=== PATIENT | female | born 2000 | race Caucasian/White ===

== ENCOUNTER 2023-05-18 11:41 | Observation (INO) | payer MEDICAID ==
[~2023-05-18] VITALS: Ht 165.1 cm; Wt 83.5 kg
== END 2023-05-18 14:45 | disposition home or self-care (01) ==
LOC: 8 EST LDRP 11:41
PROVIDERS: ADMIT Obstetrics & Gynecology; ATTEND Obstetrics & Gynecology
DX: O36.8130 Decreased fetal movements, third trimester, not applicable or unspecified (principal); Z3A.40 40 weeks gestation of pregnancy
CPT/HCPCS: 59025; 99281; 76818; 76805; G0378 ×2

== ENCOUNTER 2023-05-24 11:07 | Inpatient (IN) | payer MEDICAID ==
[~2023-05-24] VITALS: Ht 167.6 cm; Wt 88.0 kg
[~2023-05-24 11:07] MED LIST: LIDOCAINE 2%/EPINEPHRINE 1:200,000 20 ML VIAL INJ ONE
[2023-05-24] MEDS ORDERED: NALOXONE HCL 0.4 MG/ML 1ML VIAL IM PRN (12:15)
[2023-05-24] MEDS ORDERED: METHYLERGONOVINE MALEATE 0.2 MG/ML IM PRN (12:15)
[2023-05-24] MEDS ORDERED: LIDOCAINE HCL 1% 20ML VIAL (Pyxis) INJ INFIL SCH (12:15)
[2023-05-24 12:48] LABS: BASOPHILS % 0.4 % (0.0-2.0); DIFFERENTIAL COMMENT 0; EOSINOPHILS % 0.3 % (0.0-5.0); HEMATOCRIT. 31.5 % (36.0-48.0); HEMOGLOBIN. 10.4 g/dL (12.0-16.0); LYMPHOCYTES % 16.5 % (20.0-50.0); MEAN CORPUSCULAR HEMOGLOBIN 24.4 pg (28.0-32.0); MEAN CORPUSCULAR HGB CONC 32.8 g/dL (31.0-37.0); MEAN CORPUSCULAR VOLUME 74.4 fL (81.0-99.0); MONOCYTES % 7.8 % (2.0-8.0); PLATELET 197 x1000/uL (130-400); RED BLOOD CELL COUNT 4.24 mill/uL (4.2-5.4); RED CELL DISTRIBUTION WIDTH 19.2 % (11.6-14.6); WHITE BLOOD COUNT 9.6 x1000/uL (4.5-11.0)
[2023-05-24 12:56] LABS: CLARITY URINE CLEAR (CLEAR); COLOR URINE YELLOW (YELLOW); GLUCOSE URINE NEGATIVE (NEGATIVE); KETONES URINE NEGATIVE (NEGATIVE); LEUKOCYTE ESTERASE URINE 2+ (NEGATIVE); NITRITE URINE NEGATIVE (NEGATIVE); OCCULT BLOOD URINE NEGATIVE (NEGATIVE); PH URINE 6.5 (4.5-8.0); PROTEIN URINE NEGATIVE (NEGATIVE); SPECIFIC GRAVITY URINE 1.019 (1.005-1.030); UROBILINOGEN URINE 0.2 E.U./dL (0.2-1.0)
[2023-05-24] MEDS ORDERED: OXYTOCIN 30 UNITS/500ML NS PMX 500 ML IV SCH (13:00)
[2023-05-24 13:09] LABS: INR 0.9; PARTIAL THROMBOPLASTIN TIME 25.8 sec (23.4-31.0); PROTHROMBIN TIME 9.7 sec (9.6-11.0)
[2023-05-24] MEDS: OXYTOCIN 30 UNITS/500ML NS PMX 500 ML IV SCH ×2 (13:20→22:50)
[2023-05-24 13:30] LABS: RAPID HIV SCREEN NEGATIVE (NEGATIVE)
[2023-05-24 13:34] LABS: HEPATITIS B SURFACE ANTIGEN NEGATIVE
[2023-05-24 13:38] LABS: *AMPHETAMINES SCREEN URINE NEGATIVE (NEGATIVE); *BARBITURATES SCREEN URINE NEGATIVE (NEGATIVE); *BENZODIAZEPINES SCREEN URINE NEGATIVE (NEGATIVE); *COCAINE SCREEN URINE NEGATIVE (NEGATIVE); CANNABINOID URINE SCREEN NEGATIVE (NEGATIVE); ECSTASY MDMA SCREEN URINE NEGATIVE (NEGATIVE); METHADONE URINE SCREEN NEGATIVE (NEGATIVE); OPIATES URINE SCREEN NEGATIVE (NEGATIVE); PHENCYCLIDINE URINE SCREEN NEGATIVE (NEGATIVE)
[2023-05-24 13:39] LABS: RBC URINE 0-2 /hpf (0-2); SQUAMOUS EPITHELIAL CELL URINE 1+ /lpf (RARE/1+); YEAST URINE NONE SEEN
[2023-05-24 13:41] LABS: BACTERIA URINE 1+
[2023-05-24] MEDS: LACTATED RINGERS 1,000 ML IV SCH ×2 (15:19→20:24)
[2023-05-24] MEDS ORDERED: ROPIVACAINE HCL/PF EPIDURAL 200 ML EPI SCH (17:30)
[2023-05-24] MEDS ORDERED: ROPIVACAINE HCL/PF EPIDURAL 200 ML EPI ONE (17:32)
[2023-05-25 00:50] VITALS: BP 99/50; PULSE 69; RESP 18; TEMP 98.3; O2SAT 98
[2023-05-25 01:20] VITALS: BP 103/50; PULSE 71; RESP 18
[2023-05-25 04:00] VITALS: BP 96/51; PULSE 72; RESP 18; TEMP 98.2
[2023-05-25] MEDS: IBUPROFEN 800MG TABLET PO PRN ×2 (05:49→21:05)
[2023-05-25 06:32] LABS: BASOPHILS % 0.2 % (0.0-2.0); DIFFERENTIAL COMMENT 0; EOSINOPHILS % 0.1 % (0.0-5.0); HEMATOCRIT. 31.9 % (36.0-48.0); HEMOGLOBIN. 10.2 g/dL (12.0-16.0); MEAN CORPUSCULAR HEMOGLOBIN 23.9 pg (28.0-32.0); MEAN CORPUSCULAR HGB CONC 31.9 g/dL (31.0-37.0); MEAN PLATELET VOLUME 9.4 fl (7.4-10.4); MONOCYTES % 8.1 % (2.0-8.0); NEUTROPHILS % 80.6 % (40.0-76.0); PLATELET 191 x1000/uL (130-400); RED BLOOD CELL COUNT 4.26 mill/uL (4.2-5.4); WHITE BLOOD COUNT 18.4 x1000/uL (4.5-11.0)
[2023-05-25 08:00] VITALS: BP 106/64; PULSE 74; RESP 18; TEMP 98.5
[2023-05-25 20:00] VITALS: BP 110/70; PULSE 60; RESP 18; TEMP 98.9; O2SAT 98
[2023-05-26 04:15] VITALS: BP 90/50; PULSE 65; RESP 18; TEMP 98
[2023-05-26 06:26] LABS: HEMATOCRIT 29.3 % (36.0-48.0); HEMOGLOBIN 9.4 g/dL (12.0-16.0); MEAN CORPUSCULAR HEMOGLOBIN 24.4 pg (28.0-32.0); MEAN CORPUSCULAR HGB CONC 32.1 g/dL (31.0-37.0); MEAN CORPUSCULAR VOLUME 75.8 fL (81.0-99.0); PLATELET 182 x1000/uL (130-400); RED BLOOD CELL COUNT 3.86 mill/uL (4.2-5.4); RED CELL DISTRIBUTION WIDTH 19.1 % (11.6-14.6); WHITE BLOOD COUNT 13.5 x1000/uL (4.5-11.0)
[2023-05-26 08:00] VITALS: BP 91/49; PULSE 64; RESP 18; TEMP 98.1; O2SAT 98
[2023-05-26] MEDS ORDERED: FERR325T6 MT (09:03)
[2023-05-26] MEDS ORDERED: MULT-1146 MT (09:03)
[2023-05-26] MEDS ORDERED: IBUP-2030 PO (09:03)
== END 2023-05-26 14:25 | disposition home or self-care (01) | DRG 560 ==
LOC: 8 EST LDRP 11:07 → OBSVTOIN 11:07 → 8EST 05-25 00:40
PROVIDERS: ADMIT Obstetrics & Gynecology; ATTEND Obstetrics & Gynecology
PROC: 10E0XZZ Delivery of Products of Conception, External Approach (ICD-10-PCS; principal; 2023-05-24)
PROC: 3E0R3BZ Introduction of Anesthetic Agent into Spinal Canal, Percutaneous Approach (ICD-10-PCS; 2023-05-24)
PROC: 00HU33Z Insertion of Infusion Device into Spinal Canal, Percutaneous Approach (ICD-10-PCS; 2023-05-24)
DX: O48.0 Post-term pregnancy (principal); Z37.0 Single live birth; O99.12 Other diseases of the blood and blood-forming organs and certain disorders involving the immune mechanism complicating childbirth; O76 Abnormality in fetal heart rate and rhythm complicating labor and delivery; D72.829 Elevated white blood cell count, unspecified; Z3A.40 40 weeks gestation of pregnancy; O90.81 Anemia of the puerperium; D64.9 Anemia, unspecified
CPT/HCPCS: 36415; 80305; 81003; 85025; 85027; 86592; 86703; 86762; 86850; 86900; 87340; 99281; J2795; J3490; J7120; J2590